=== PATIENT | male | born 1940 | race Caucasian/White ===

== ENCOUNTER 2023-03-01 07:13 | Day surgery (SDC) | payer OTHER ==
[~2023-03-01] VITALS: Ht 167.6 cm; Wt 79.8 kg
[2023-03-01] MEDS ORDERED: MIDAZOLAM HCL 5 MG/5 ML VIAL ONE (07:50)
[2023-03-01] MEDS ORDERED: MEPERIDINE HCL/PF 25 MG/ML DISP.SYRIN ONE (07:51)
[2023-03-01] MEDS ORDERED: MEPERIDINE 100 MG INJ. 100 MG/ML VIAL ONE (08:03)
[2023-03-02 09:48] VITALS: BP_SYST 118
== END 2023-03-01 12:05 | disposition home or self-care (01) ==
LOC: SDS 07:13 → SMU 07:14 → SDS 12:05
PROVIDERS: ATTEND Internal Medicine Gastroenterology
DX: Z12.11 Encounter for screening for malignant neoplasm of colon (principal); Z86.010 Personal history of colon polyps; K57.30 Diverticulosis of large intestine without perforation or abscess without bleeding; K64.8 Other hemorrhoids; M19.90 Unspecified osteoarthritis, unspecified site; K21.9 Gastro-esophageal reflux disease without esophagitis; E78.00 Pure hypercholesterolemia, unspecified; Z86.73 Personal history of transient ischemic attack (TIA), and cerebral infarction without residual deficits; Z87.891 Personal history of nicotine dependence; Z79.899 Other long term (current) drug therapy
CPT/HCPCS: 45378; 99152; G0378; J2250; J2175